=== PATIENT | male | born 1990 | race Caucasian/White ===

== ENCOUNTER 2016-11-19 11:20 | Emergency (ER) | payer OTHER ==
[~2016-11-19] VITALS: Ht 180.3 cm; Wt 104.6 kg
[~2016-11-19 11:20] MED LIST: ADVIL200 MG PO; ALBUTEROL SULF8.5 GM IH; KEPPRA500 MG PO; LAMICTAL PO; LAMICTAL XR300 MG PO; LAMOTRIGINE150 MG PO; MOTRIN600 MG PO; MOTRIN800 MG PO; NOHOMEMEDS; PREDNISONE50 MG PO; ROBITUSSIN AC,T10 ML PO
[2016-11-19 13:10] VITALS: BP 132/83
== END 2016-11-19 13:11 | disposition home or self-care (01) ==
LOC: EME → EDBD 11:20 → EME 11:20
DX: G40.909 Epilepsy, unspecified, not intractable, without status epilepticus (principal); F17.200 Nicotine dependence, unspecified, uncomplicated
CPT/HCPCS: 99281; 99284

== ENCOUNTER 2017-03-01 23:43 | Emergency (ER) | payer OTHER ==
[~2017-03-01] VITALS: Ht 180.3 cm; Wt 104.5 kg
[2017-03-02] MEDS ORDERED: NORCO 5/3251 TABLET PO (02:53)
[2017-03-02 03:16] VITALS: BP 130/58
== END 2017-03-02 03:17 | disposition home or self-care (01) ==
LOC: EME 23:43
DX: S00.93XA Contusion of unspecified part of head, initial encounter (principal); H20.042 Secondary noninfectious iridocyclitis, left eye; M54.2 Cervicalgia; M79.604 Pain in right leg; M79.605 Pain in left leg; R11.0 Nausea; W10.9XXA Fall (on) (from) unspecified stairs and steps, initial encounter; F17.200 Nicotine dependence, unspecified, uncomplicated
CPT/HCPCS: 70450; 70486; 71020; 72125; 73502; 99281; 99284

== ENCOUNTER 2017-09-09 22:47 | Emergency (ER) | payer OTHER ==
[~2017-09-09] VITALS: Ht 180.3 cm; Wt 114.9 kg
[~2017-09-09 22:47] MED LIST changes: +NORCO 5/3251 TABLET PO
[2017-09-10] MEDS ORDERED: KEFLEX500 MG PO (00:06)
[2017-09-10] MEDS ORDERED: NORCO 7.5/321 TABLET PO (00:06)
[2017-09-10] MEDS ORDERED: MOTRIN800 MG PO (00:06)
[2017-09-10 01:01] VITALS: BP 120/70
== END 2017-09-10 01:02 | disposition home or self-care (01) ==
LOC: EXP 22:47 → EME 22:47 → EXP 09-10 01:02
PROC: 3E0234Z Introduction of Serum, Toxoid and Vaccine into Muscle, Percutaneous Approach (ICD-10-PCS; principal; 2017-09-09)
DX: T23.202A Burn of second degree of left hand, unspecified site, initial encounter (principal); L03.114 Cellulitis of left upper limb; X19.XXXA Contact with other heat and hot substances, initial encounter; G40.909 Epilepsy, unspecified, not intractable, without status epilepticus; Z23 Encounter for immunization; F17.200 Nicotine dependence, unspecified, uncomplicated; Z88.8 Allergy status to other drugs, medicaments and biological substances
CPT/HCPCS: 99281; 99283

== ENCOUNTER 2017-09-22 15:26 | Emergency (ER) | payer OTHER ==
[~2017-09-22] VITALS: Ht 180.3 cm; Wt 112.2 kg
[~2017-09-22 15:26] MED LIST changes: +KEFLEX500 MG PO; +NORCO 7.5/321 TABLET PO
[2017-09-22 16:38] LABS: HEMATOCRIT 44.3 % (38.0-50.0); HEMOGLOBIN 15.5 G/DL (12.5-16.6); MCH 28.6 PG (29.0-34.0); MCV 81.7 FL (86-99); PLATELET COUNT 271 K/uL (156-360); RBC DIS.WIDTH-CV 12.4 % (11.8-14.6); RBC DIS.WIDTH-SD 36.9 % (39-53); RED BLOOD COUNT 5.42 M/uL (4.00-5.50); WHITE BLOOD COUNT 11.7 K/uL (4.1-10.2)
[2017-09-22 16:47] LABS: CHLORIDE 104 mEq/L (99-109); POTASSIUM 4.5 mEq/L (3.7-5.4); SODIUM 140 mEq/L (136-147)
[2017-09-22 16:49] LABS: GLUCOSE 88 mg/dL (70-99)
[2017-09-22 16:52] LABS: SERUM ETHYL ALCOHOL < 10 mg/dL
[2017-09-22 16:53] LABS: CREATININE 0.8 mg/dL (0.6-1.3); GFR ESTIMATE (CALCULATED) > 59 mL/min/ (58.99-99999)
[2017-09-22 16:54] LABS: UREA NITROGEN (BUN) 9 mg/dL (9-23)
[2017-09-22 20:06] VITALS: BP 114/68
== END 2017-09-22 20:06 | disposition home or self-care (01) ==
LOC: EME 15:26
PROVIDERS: Emergency Medicine
PROC: 0HQ1XZZ Repair Face Skin, External Approach (ICD-10-PCS; principal; 2017-09-22)
DX: G40.909 Epilepsy, unspecified, not intractable, without status epilepticus (principal); S01.112A Laceration without foreign body of left eyelid and periocular area, initial encounter; W18.30XA Fall on same level, unspecified, initial encounter; T23.002D Burn of unspecified degree of left hand, unspecified site, subsequent encounter; T42.76XA Underdosing of unspecified antiepileptic and sedative-hypnotic drugs, initial encounter; Z91.128 Patient's intentional underdosing of medication regimen for other reason; F17.200 Nicotine dependence, unspecified, uncomplicated
CPT/HCPCS: 70450; 80048; 85027; 99281; 99284; G0480